=== PATIENT | male | born 1995 | race Caucasian/White ===

== ENCOUNTER 2019-12-24 11:44 | Emergency (ER) | payer OTHER ==
[~2019-12-24] VITALS: Ht 185.4 cm; Wt 90.7 kg
[2019-12-24] MEDS ORDERED: NAPROXEN500 MG PO (16:01)
[2019-12-24] MEDS ORDERED: VISTARIL50 MG PO (16:01)
== END 2019-12-24 16:10 | disposition home or self-care (01) ==
LOC: ER 11:44
DX: M79.18 Myalgia, other site (principal)